=== PATIENT | male | born 1960 | race Caucasian/White ===

== ENCOUNTER 2020-07-18 08:23 | Inpatient (IN) | payer OTHER ==
[~2020-07-18] VITALS: Ht 170.2 cm; Wt 68.0 kg
[~2020-07-18 08:23] MED LIST: B-1100 MG PO; BACTRIM D.S. TAB1 EA PO; BACTRIM DS TAB1 EACH PO; BENADRYL 25MG C25 MG PO; CLEOCIN 150MG150 MG PO; HYDROCODON-ACE1 EAC2 PO; KEFLEX CAP 500500 MG PO; NORCO 7.5-3251 EACH PO; ONCE DAILY1 EACH PO; PREDNISONE 50 M50 MG PO; ZESTRIL10 MG PO
[2020-07-18 09:12] LABS: HEMOGLOBIN 16.9 gm/dl (14.0-17.5); RED BLOOD COUNT 4.65 M/UL (4.20-5.50); WHITE BLOOD COUNT 11.9 K/UL (4.5-11.0)
[2020-07-18 10:28] LABS: BUN/CREATININE RATIO 22 (0-10)
[2020-07-19 04:17] LABS: HEMOGLOBIN 14.3 gm/dl (14.0-17.5); RED BLOOD COUNT 4.01 M/UL (4.20-5.50); WHITE BLOOD COUNT 16.4 K/UL (4.5-11.0)
[2020-07-19 04:33] LABS: BUN/CREATININE RATIO 23 (0-10)
[2020-07-20 04:23] LABS: HEMOGLOBIN 13.5 gm/dl (14.0-17.5); RED BLOOD COUNT 3.82 M/UL (4.20-5.50)
[2020-07-20 04:25] LABS: WHITE BLOOD COUNT 8.4 K/UL (4.5-11.0)
[2020-07-20 04:46] LABS: BUN/CREATININE RATIO 22 (0-10)
[2020-07-21 06:32] LABS: HEMOGLOBIN 14.9 gm/dl (14.0-17.5); RED BLOOD COUNT 4.15 M/UL (4.20-5.50); WHITE BLOOD COUNT 9.2 K/UL (4.5-11.0)
[2020-07-21 07:14] LABS: BUN/CREATININE RATIO 22 (0-10)
[2020-07-22 05:06] LABS: HEMOGLOBIN 13.3 gm/dl (14.0-17.5); RED BLOOD COUNT 3.75 M/UL (4.20-5.50)
[2020-07-22 05:07] LABS: WHITE BLOOD COUNT 5.1 K/UL (4.5-11.0)
[2020-07-22 05:39] LABS: BUN/CREATININE RATIO 22 (0-10)
[2020-07-23 04:18] LABS: HEMOGLOBIN 14.9 gm/dl (14.0-17.5); WHITE BLOOD COUNT 5.6 K/UL (4.5-11.0)
[2020-07-23 04:26] LABS: RED BLOOD COUNT 4.17 M/UL (4.20-5.50)
[2020-07-23 04:31] LABS: BUN/CREATININE RATIO 27 (0-10)
[2020-07-23] MEDS ORDERED: DIGOXIN125 MCG PO (12:04)
[2020-07-23] MEDS ORDERED: ASPIRIN EC81 MG PO (12:04)
[2020-07-23] MEDS ORDERED: AMOX TR-K CLV1 EAC4 PO (12:04)
[2020-07-23] MEDS ORDERED: PROTONIX 40 MG40 M1 PO (12:04)
[2020-07-23] MEDS ORDERED: METOPROLOL SUCC50 MG PO (12:04)
[2020-07-23] MEDS ORDERED: LISINOPRIL10 MG PO (12:04)
[2020-07-23] MEDS ORDERED: ALDACTONE 25MG25 MG PO (12:04)
--- NOTE | 2020-07-23 14:09 | NUR ---
CALLED AND GAVE REPORT TO COLLEEN CASIANO AT [facility], EMS CALLED FOR TRANSPORT , SPOKE TO MULTIPLE FAMILY MEMBERS ABOUT THE TRANSFER ALSO. AND SO DID DR KING AFTER THE PROCEDURE NOTED. RIGHT GROIN CATH SITE WNL, V/S WNL PT IS 99 SATS ON ROOM AIR.
--- NOTE | 2020-07-23 14:45 | NUR ---
PT LEAVING FLOOR AT THIS TIME PER EMS TO [facility]
== END 2020-07-23 14:39 | disposition short-term general hospital (02) | DRG 871 ==
LOC: ER1 08:23 → CDU 11:26 → CCU 12:27 → CDU 12:27 → CCU 17:25 → MED SURG 4 07-22 17:22
PROVIDERS: Hospitalist; Internal Medicine; Student in an Organized Health Care Education/Training Program; ADMIT Family Medicine
PROC: 0BH17EZ Insertion of Endotracheal Airway into Trachea, Via Natural or Artificial Opening (ICD-10-PCS; principal; 2020-07-18)
PROC: 5A1945Z Respiratory Ventilation, 24-96 Consecutive Hours (ICD-10-PCS; 2020-07-18)
PROC: 05HN33Z Insertion of Infusion Device into Left Internal Jugular Vein, Percutaneous Approach (ICD-10-PCS; 2020-07-18)
PROC: B544ZZA Ultrasonography of Left Jugular Veins, Guidance (ICD-10-PCS; 2020-07-18)
PROC: B24BZZZ Ultrasonography of Heart with Aorta (ICD-10-PCS; 2020-07-18)
PROC: 4A023N7 Measurement of Cardiac Sampling and Pressure, Left Heart, Percutaneous Approach (ICD-10-PCS; 2020-07-23)
PROC: B2111ZZ Fluoroscopy of Multiple Coronary Arteries using Low Osmolar Contrast (ICD-10-PCS; 2020-07-23)
PROC: 4A033BC Measurement of Arterial Pressure, Coronary, Percutaneous Approach (ICD-10-PCS; 2020-07-23)
PROC: B41G1ZZ Fluoroscopy of Left Lower Extremity Arteries using Low Osmolar Contrast (ICD-10-PCS; 2020-07-23)
PROC: B24BZZZ Ultrasonography of Heart with Aorta (ICD-10-PCS; 2020-07-23)
DX: A41.9 Sepsis, unspecified organism (principal); J96.02 Acute respiratory failure with hypercapnia; I21.4 Non-ST elevation (NSTEMI) myocardial infarction; R57.0 Cardiogenic shock; J69.0 Pneumonitis due to inhalation of food and vomit; G93.41 Metabolic encephalopathy; I50.21 Acute systolic (congestive) heart failure; J96.01 Acute respiratory failure with hypoxia; E87.3 Alkalosis; F10.239 Alcohol dependence with withdrawal, unspecified; I24.9 Acute ischemic heart disease, unspecified; I25.10 Atherosclerotic heart disease of native coronary artery without angina pectoris; F17.210 Nicotine dependence, cigarettes, uncomplicated; Z20.822 Contact with and (suspected) exposure to COVID-19; R91.8 Other nonspecific abnormal finding of lung field; I25.5 Ischemic cardiomyopathy; Z90.49 Acquired absence of other specified parts of digestive tract
CPT/HCPCS: ECHO; 0240U; 31500; 36415; 36600; 71045; 80048; 80053; 80202; 81001; 82550; 82553; 82803; 83605; 83735; 83874; 83880; 84100; 84132; 84484; 85025; 85027; 85379; 85610; 85730; 86140; 87040; 87070; 87086; 87205; 93005; 93306; 93308; 94002; 94003; 94640; 94760; 96365; 96366; 96367; 96368; 96375; 96376; 99152; 99285; C1769; C1894; J0456; J0696; J1160; J1205; J1644; J1650; J1940; J2060; J2250; J2543; J2704; J3010; J3370; J3411; J3480; J7030; J7040; J7050; J7070; P9047; Q9967

== ENCOUNTER 2020-08-07 20:42 | Emergency (ER) | payer OTHER ==
[~2020-08-07 20:42] MED LIST changes: +ALDACTONE 25MG25 MG PO; +AMOX TR-K CLV1 EAC4 PO; +ASPIRIN EC81 MG PO; +DIGOXIN125 MCG PO; +LISINOPRIL10 MG PO; +METOPROLOL SUCC50 MG PO; +PROTONIX 40 MG40 M1 PO
[2020-08-08 00:33] LABS: RED BLOOD COUNT 3.42 M/UL (4.20-5.50); WHITE BLOOD COUNT 6.6 K/UL (4.5-11.0)
[2020-08-08 00:55] LABS: BUN/CREATININE RATIO 14 (0-10)
== END 2020-08-08 04:00 | disposition home or self-care (01) ==
LOC: ER1 20:42
PROVIDERS: Family Medicine
DX: R07.9 Chest pain, unspecified (principal); F17.200 Nicotine dependence, unspecified, uncomplicated; Z95.1 Presence of aortocoronary bypass graft
CPT/HCPCS: 71046; 80053; 82550; 82553; 83874; 84484; 85025; 93005; 99285

== ENCOUNTER 2021-07-04 08:24 | Inpatient (IN) | payer OTHER ==
[~2021-07-04] VITALS: Ht 170.2 cm; Wt 72.6 kg
[2021-07-04 08:50] LABS: RED BLOOD COUNT 4.7 M/UL (4.20-5.50); WHITE BLOOD COUNT 6.7 K/UL (4.5-11.0)
[2021-07-04 09:21] LABS: BUN/CREATININE RATIO 16 (0-10)
[2021-07-05 04:46] LABS: HEMOGLOBIN 16.7 gm/dl (14.0-17.5); RED BLOOD COUNT 4.75 M/UL (4.20-5.50); WHITE BLOOD COUNT 5.1 K/UL (4.5-11.0)
[2021-07-05 07:15] LABS: BUN/CREATININE RATIO 23 (0-10)
[2021-07-06 05:22] LABS: HEMOGLOBIN 16.3 gm/dl (14.0-17.5); RED BLOOD COUNT 4.58 M/UL (4.20-5.50)
[2021-07-06 05:49] LABS: BUN/CREATININE RATIO 34 (0-10)
[2021-07-07 06:36] LABS: HEMOGLOBIN 15.9 gm/dl (14.0-17.5); RED BLOOD COUNT 4.51 M/UL (4.20-5.50); WHITE BLOOD COUNT 5.9 K/UL (4.5-11.0)
[2021-07-07 06:53] LABS: BUN/CREATININE RATIO 35 (0-10)
--- NOTE | 2021-07-07 09:11 | NUR ---
PATIENT SEEMS DETERMINED TO LEAVE AMA. PROVIDER NOTIFIED. PATIENTS CONDITION HAS BEEN EXPLAINED TO JALEEL AND PROVIDER. WHEN PROVIDER NOTIFIED, SHE SAID "YEA, OK, WE'LL SEE. THANK YOU." WILL CONTINUE TO MONITOR.
== END 2021-07-07 09:25 | disposition left against medical advice (07) | DRG 291 ==
LOC: ER1 08:24 → CDU 11:07 → MED SURG 4 11:07
PROVIDERS: Physician Assistant; Student in an Organized Health Care Education/Training Program; ADMIT Internal Medicine
PROC: 3E0333Z Introduction of Anti-inflammatory into Peripheral Vein, Percutaneous Approach (ICD-10-PCS; principal; 2021-07-04)
PROC: 5A0945A Assistance with Respiratory Ventilation, 24-96 Consecutive Hours, High Flow/Velocity Cannula (ICD-10-PCS; 2021-07-04)
PROC: B24BZZZ Ultrasonography of Heart with Aorta (ICD-10-PCS; 2021-07-05)
DX: I11.0 Hypertensive heart disease with heart failure (principal); I50.23 Acute on chronic systolic (congestive) heart failure; J96.01 Acute respiratory failure with hypoxia; E78.5 Hyperlipidemia, unspecified; I25.5 Ischemic cardiomyopathy; I25.10 Atherosclerotic heart disease of native coronary artery without angina pectoris; I08.1 Rheumatic disorders of both mitral and tricuspid valves; D69.6 Thrombocytopenia, unspecified; F10.10 Alcohol abuse, uncomplicated; Z95.1 Presence of aortocoronary bypass graft; I25.2 Old myocardial infarction; Z91.14 Patient's other noncompliance with medication regimen; Z87.828 Personal history of other (healed) physical injury and trauma; Z90.49 Acquired absence of other specified parts of digestive tract; Z82.49 Family history of ischemic heart disease and other diseases of the circulatory system; Z80.6 Family history of leukemia
CPT/HCPCS: ECHO; 36415; 36600; 71045; 80048; 80053; 82550; 82553; 82803; 83605; 83735; 83880; 84484; 85025; 85379; 85652; 86140; 87040; 93005; 93306; 94664; 94760; 96374; 96375; 99285; J0692; J0696; J1100; J1940; J2060; J2185; Q9967; U0002

== ENCOUNTER 2021-08-23 17:01 | Inpatient (IN) | payer OTHER ==
[~2021-08-23] VITALS: Ht 170.2 cm; Wt 68.0 kg
[2021-08-23 17:58] LABS: HEMOGLOBIN 14.9 gm/dl (14.0-17.5); RED BLOOD COUNT 4.13 M/UL (4.20-5.50); WHITE BLOOD COUNT 5.7 K/UL (4.5-11.0)
[2021-08-23 18:18] LABS: BUN/CREATININE RATIO 29 (0-10)
[2021-08-24 04:23] LABS: HEMOGLOBIN 13.6 gm/dl (14.0-17.5); RED BLOOD COUNT 3.86 M/UL (4.20-5.50); WHITE BLOOD COUNT 4.4 K/UL (4.5-11.0)
[2021-08-24 04:53] LABS: BUN/CREATININE RATIO 28 (0-10)
[2021-08-25 02:56] LABS: HEMOGLOBIN 14.7 gm/dl (14.0-17.5); RED BLOOD COUNT 4.17 M/UL (4.20-5.50); WHITE BLOOD COUNT 5.2 K/UL (4.5-11.0)
[2021-08-25 03:21] LABS: BUN/CREATININE RATIO 22 (0-10)
[2021-08-26 02:23] LABS: HEMOGLOBIN 15.7 gm/dl (14.0-17.5); RED BLOOD COUNT 4.39 M/UL (4.20-5.50); WHITE BLOOD COUNT 5.4 K/UL (4.5-11.0)
[2021-08-26 03:01] LABS: BUN/CREATININE RATIO 20 (0-10)
[2021-08-26] MEDS ORDERED: LIPITOR TAB 2020 MG PO (12:14)
[2021-08-26] MEDS ORDERED: LASIX40 MG PO (12:14)
[2021-08-26] MEDS ORDERED: METOPROLOL SUCC25 MG PO (12:14)
[2021-08-26] MEDS ORDERED: ASPIRIN EC81 MG PO (12:14)
--- NOTE | 2021-08-26 12:46 | NUR ---
GAVE PATIENT RAZORS AND SUPPLIES TO SHAVE PRIOR TO D/C. [facility]. EDUCATION GIVEN AND ALLOWED PATIENT TO ASK QUESTIONS. PATIENT HAS LIFE VEST AT [facility] THAT HE ALREADY WEARS AND WILL PUT ON SOON HE GETS THERE.
== END 2021-08-26 13:11 | disposition home or self-care (01) | DRG 291 ==
LOC: ER1 17:01 → CDU 21:50 → MED SURG 4 21:50
PROVIDERS: Emergency Medicine; Internal Medicine; Physician Assistant; ADMIT Internal Medicine
DX: I11.0 Hypertensive heart disease with heart failure (principal); I50.23 Acute on chronic systolic (congestive) heart failure; J96.01 Acute respiratory failure with hypoxia; E44.0 Moderate protein-calorie malnutrition; E87.2 Acidosis; Z20.822 Contact with and (suspected) exposure to COVID-19; I25.82 Chronic total occlusion of coronary artery; I25.10 Atherosclerotic heart disease of native coronary artery without angina pectoris; I25.5 Ischemic cardiomyopathy; Z96.661 Presence of right artificial ankle joint; F10.10 Alcohol abuse, uncomplicated; E78.5 Hyperlipidemia, unspecified; F17.210 Nicotine dependence, cigarettes, uncomplicated; I25.2 Old myocardial infarction; Z91.14 Patient's other noncompliance with medication regimen; Z95.1 Presence of aortocoronary bypass graft; Z90.49 Acquired absence of other specified parts of digestive tract; Z98.890 Other specified postprocedural states; Z82.49 Family history of ischemic heart disease and other diseases of the circulatory system; Z80.6 Family history of leukemia; Z68.25 Body mass index [BMI] 25.0-25.9, adult; Z79.82 Long term (current) use of aspirin; Z79.899 Other long term (current) drug therapy
CPT/HCPCS: 71045; 71046; 73630; 80048; 80053; 82550; 82553; 83036; 83735; 83880; 84100; 84439; 84443; 84484; 84550; 85025; 93005; 94664; 94760; 96374; 99285; J0692; J1650; J1940; U0002